=== PATIENT | male | born 1940 | race Caucasian/White ===

== ENCOUNTER 2017-10-27 05:05 | Emergency (ER) | payer MEDICARE, OTHER ==
[2017-10-27 05:14] VITALS: BP 145/95
[2017-10-27] MEDS ORDERED: SODIUM CHLORIDE 0.9% 1,000 ML IV ONE (05:17)
--- NOTE | 2017-10-27 05:27 | ED Physician Documentation ---
PD HPI ALTERED MENTAL STATUS - Stated complaint Stated Complaint: CONFUSION,HALLUCINATIONS - Chief complaint Chief Complaint: Neuro - History obtained from History obtained from: Patient, Family - History of Present Illness Timing - onset: How many days ago (4) Timing - details: Gradual onset, Intermittant Quality / character: Confused, Disoriented Associated symptoms: Cough. No: Fever, Headache, Focal weakness Contributing factors: Anticoagulated, Recent illness. No: Diabetic, Recent med change Basline status: Alert and oriented X 3 Similar symptoms before: Work up / diagnostics, Treatment Recently seen: Clinic - Additional information Additional information: Patient is a 77 year old male with a history of a-fib who is presenting to the emergency department confusion. according to the the patient has had a cough for awhile. About 4 days ago the stated that the patient seemed confused. The took the patient to the doctor who stated that he likely has a pneumonia developing and started the patient on keflex. states that he seems to still be confused. states that this morning patient was able to get up, pour juice, make tea and toast but forgot to drink his tea. According to the patient he sleeps in short stints and when he is asleep he calls sometimes. Patient is awake, alert and oriented upon initial evaluation. patient had a similar episode about 15 months ago when he had bronchitis. Review of Systems Constitutional: reports: Chills, Myalgias. denies: Fever Eyes: denies: Decreased vision, Photophobia Ears: denies: Ear pain Nose: denies: Congestion Throat: denies: Sore throat Cardiac: denies: Chest pain / pressure, Palpitations Respiratory: reports: Dyspnea, Cough. denies: Wheezing GI: denies: Nausea, Vomiting : denies: Dysuria, Frequency Skin: denies: Rash, Lesions Musculoskeletal: denies: Neck pain, Back pain, Extremity pain Neurologic: reports: Confused. 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: Other (Vasectomy) - Present Medications Home Medications: Ambulatory Orders Medication Instructions Recorded Confirmed Atorvastatin Calcium [Lipitor] 20 mg PO DAILY 02/17/15 08/10/16 Losartan [Cozaar] 25 mg PO DAILY 02/17/15 08/10/16 Metoprolol Succinate 50 mg PO DAILY 02/17/15 08/10/16 Pregabalin [Lyrica] 150 mg PO BID 02/17/15 08/10/16 Rivaroxaban [Xarelto] 20 mg PO DAILY 02/17/15 08/10/16 Azithromycin [Zithromax] 250 mg PO DAILY #4 tablet 08/10/16 - Allergies Allergies/Adverse Reactions: Allergies Allergy/AdvReac Type Severity Reaction Status Date / Time clindamycin Allergy Unknown Verified 02/17/15 08:08 penicillin * [penicillin] Allergy Unknown Verified 02/17/15 08:08 - Social History Does the pt smoke?: No Smoking Status: Never smoker Does the pt drink ETOH?: Yes Does the pt have substance abuse?: No - Immunizations Immunizations are current?: No Immunizations: TDAP >10years/unknown PD ED PE NORMAL - Vitals Vital signs reviewed: Yes - General General: Alert and oriented X 3, No acute distress, Well developed/nourished - HEENT HEENT: Atraumatic, PERRL, Moist mucous membranes Results - Vitals Vitals: Vital Signs - 24 hr 10/27/17 05:11 Temperature 37.1 C Heart Rate 93 Respiratory 16 Rate Blood Pressure 145/95 H O2 Saturation 95 Oxygen O2 Source Room air - Labs Labs: Laboratory Tests 10/27/17 10/27/17 10/27/17 05:20 05:20 05:20 WBC 8.6 RBC 4.86 Hgb 14.8 Hct 44.3 MCV 91.1 MCH 30.5 MCHC 33.4 RDW 13.5 Plt Count 196 MPV 8.3 Neut # 5.1 Lymph # 2.1 Nicholas # 1.1 H Eos # 0.2 Baso # 0.1 Absolute Nucleated RBC 0.00 Nucleated RBC % 0.0 Sodium 137 Potassium 3.8 Chloride 98 L Carbon Dioxide 28 Anion Gap 11.0 BUN 16 Creatinine 1.0 Estimated GFR (MDRD) 72 L Glucose 131 H Calcium 9.1 Magnesium 1.9 Total Bilirubin 0.9 AST 34 ALT 43 Alkaline Phosphatase 119 Ammonia Total Creatine Kinase 115 Total Protein 7.3 Albumin 4.3 Globulin 3.0 Albumin/Globulin Ratio 1.4 Lipase 146 H TSH 4.31 Urine Color Urine Clarity Urine pH Ur Specific Mohler Urine Protein Urine Glucose (UA) Urine Ketones Urine Occult Blood Urine Nitrite Urine Bilirubin Urine Urobilinogen Ur Leukocyte Esterase Ur Microscopic Review Urine Culture Comments Influenza A (Rapid) Influenza B (Rapid) Influenza Types A,B Ag 10/27/17 10/27/17 10/27/17 05:20 05:30 06:20 WBC RBC Hgb Hct MCV MCH MCHC RDW Plt Count MPV Neut # Lymph # Nicholas # Eos # Baso # Absolute Nucleated RBC Nucleated RBC % Sodium Potassium Chloride Carbon Dioxide Anion Gap BUN Creatinine Estimated GFR (MDRD) Glucose Calcium Magnesium Total Bilirubin AST ALT Alkaline Phosphatase Ammonia 27.6 Total Creatine Kinase Total Protein Albumin Globulin Albumin/Globulin Ratio Lipase TSH Urine Color YELLOW Urine Clarity CLEAR Urine pH 5.5 Ur Specific Mohler 1.020 Urine Protein NEGATIVE Urine Glucose (UA) NEGATIVE Urine Ketones NEGATIVE Urine Occult Blood NEGATIVE Urine Nitrite NEGATIVE Urine Bilirubin NEGATIVE Urine Urobilinogen 0.2 (NORMAL) Ur Leukocyte Esterase NEGATIVE Ur Microscopic Review NOT INDICATED Urine Culture Comments NOT INDICATED Influenza A (Rapid) Negative Influenza B (Rapid) Negative Influenza Types A,B Ag - - Rads (name of study) chest x-ray Radiology: Final report received (normal) PD MEDICAL DECISION MAKING - ED course Complexity details: reviewed old records, reviewed results, re-evaluated patient , considered differential, d/w patient, d/w family ED course: Patient was seen and examined at bedside. IV access was gained and labs were drawn. fluid bolus was started. chest x-ray was performed and was within normal limits. patient's symptoms seemed to be almost the exact same thing as his last visit. Patient was awake, alert and oriented and appropriate but he would fall asleep relatively quickly. Patient had mild dehydration and was treated with ns bolus. Patient's other diagnostics were within normal limits. Patient and his were comfortable with the plan and were stable for discharge with outpatient followup. Departure - Departure Disposition: 01 Home, Self Care Clinical Impression: Delirium Condition: Good Instructions: Delirium Prevent Follow-Up: Christiano Al MD [Primary Care Provider] - Comments: Your diagnostics today were within normal limits. there is no acute abnormalities aside from mild dehydration. It is important to stay well hydrated and get plenty of rest. If your symptoms don't improve over the next couple of days you should follow up with your doctor. You may return to the emergency department at any time for new, worsening or uncontrollable symptoms.
[2017-10-27 05:33] LABS: BASOPHILS # (AUTO) 0.1 10^3/uL (0.0-0.1); BASOPHILS % (AUTO) 0.8 %; EOSINOPHILS # (AUTO) 0.2 10^3/uL (0.0-0.7); EOSINOPHILS % (AUTO) 2.6 %; HGB - HEMOGLOBIN 14.8 g/dL (14.0-18.0); LYMPHOCYTES # (AUTO) 2.1 10^3/uL (1.5-3.5); LYMPHOCYTES % (AUTO) 24.4 %; MEAN CORPUSCULAR HEMOGLOBIN 30.5 pg (27.0-31.0); MEAN CORPUSCULAR HGB CONC 33.4 g/dL (32.0-36.0); MEAN CORPUSCULAR VOLUME 91.1 fL (80.0-94.0); MEAN PLATELET VOLUME 8.3 fL (7.4-11.4); MONOCYTES # (AUTO) 1.1 10^3/uL (0.0-1.0); MONOCYTES % (AUTO) 12.4 %; NEUTROPHILS # (AUTO) 5.1 10^3/uL (1.5-6.6); NEUTROPHILS % (AUTO) 59.8 %; PLT - PLATELET COUNT 196 10^3/uL (130-450); RED BLOOD COUNT 4.86 10^6/uL (4.70-6.10); RED CELL DISTRIBUTION WIDTH 13.5 % (12.0-15.0); WHITE BLOOD COUNT 8.6 x10^3/uL (4.8-10.8)
[2017-10-27 05:38] LABS: ALBUMIN 4.3 g/dL (3.2-5.5); ALBUMIN/GLOBULIN RATIO 1.4 (1.0-2.2); BILIRUBIN,TOTAL 0.9 mg/dL (0.2-1.0); CALCIUM 9.1 mg/dL (8.5-10.3); MAGNESIUM 1.9 mg/dL (1.7-2.8); TOTAL PROTEIN 7.3 g/dL (6.7-8.2)
--- NOTE | 2017-10-27 06:08 | XRAY Report ---
EXAM: CHEST RADIOGRAPHY EXAM DATE: 10/27/2017 05:50 AM. CLINICAL HISTORY: Cough, fever, confusion. COMPARISON: 08/10/2016. TECHNIQUE: 2 views. FINDINGS: Lungs/Pleura: No focal opacities evident. No pleural effusion. No pneumothorax. Normal volumes. Mediastinum: Heart and mediastinal contours are unremarkable. Other: Stable right hemidiaphragm mild elevation. IMPRESSION: No acute process seen in the chest. [facility] Referring Provider Line: [phone] SITE ID: [id number]
[2017-10-27 06:26] LABS: BILIRUBIN,URINE NEGATIVE (NEGATIVE); GLUCOSE, URINE (UA) NEGATIVE (NEGATIVE); KETONES,URINE (UA) NEGATIVE (NEGATIVE); LEUKOCYTE ESTERASE, URINE NEGATIVE (NEGATIVE); NITRITE,URINE NEGATIVE (NEGATIVE); OCCULT BLOOD,URINE NEGATIVE (NEGATIVE); PH,URINE 5.5 PH (5.0-7.5); PROTEIN,URINE NEGATIVE (NEGATIVE); UROBILINOGEN,URINE 0.2 (NORMAL) E.U./dL (NORMAL)
[2017-10-27 06:30] LABS: CLARITY,URINE CLEAR (CLEAR)
== END 2017-10-27 07:14 | disposition home or self-care (01) ==
LOC: ED 05:05
DX: R41.0 Disorientation, unspecified (principal); I10 Essential (primary) hypertension
CPT/HCPCS: 36415; 71046; 80053; 81001; 81003; 82140; 82550; 83690; 83735; 84443; 85025; 87040; 87086; 87275; 87276; 96360; 99284

== ENCOUNTER 2017-11-06 09:42 | Outpatient (CLI) | payer MEDICARE, OTHER ==
[~2017-11-06 09:42] MED LIST: GADOBUTROL 15 MMOL/15 ML VIAL ONE
[2017-11-06] MEDS ORDERED: GADOBUTROL 15 MMOL/15 ML VIAL IVP ONE (11:04)
--- NOTE | 2017-11-06 20:04 | MRI Report ---
EXAM: MRI LUMBAR SPINE WITHOUT AND WITH CONTRAST EXAM DATE: 11/06/2017 11:18 AM. CLINICAL HISTORY: Chronic low back pain. Right lower leg numbness. Right leg weakness. Spinal stenosi s. COMPARISONS: None. TECHNIQUE: Multiplanar, multisequence T1-weighted and fluid-sensitive sequences of the lumbar spine f rom T12 to S1 before and after administration of intravenous contrast. Other: None. IV contrast: 11 m L Gadavist. FINDINGS: Spinal Cord: The conus terminates at L1. The conus medullaris and cauda equina are unremarkable. Alignment: 3 mm posterior subluxation L1 on L2 and L2 on L3. 4 mm anterior subluxation L4 on L5. Bone Marrow: Five [id number] lumbar vertebral bodies are assumed. Patchy areas of diskogenic end plate edema at L2-L3, L4-L5 and L5-S1. Prominent marrow edema at the right-sided L5 pedicle and pars interarticularis. Disk Levels/Facets: T12-L1: Disk height loss and dehydration. Annular disk bulge and mild degenerative facet arthropathy. Mild effacement of the thecal sac. L1-L2: Disk height loss and dehydration. Annular disk bulge with broad-based right foraminal protrusi on and moderate degenerative facet arthropathy. Mild central canal stenosis. Mild left greater than r ight inferior foraminal narrowing. L2-L3: Disk height loss and dehydration. Annular disk bulge. Moderate degenerative facet arthropathy with ligamentum flavum buckling. Broad-based left greater than right foraminal protrusions. Moderate central canal stenosis. Some prominence of posterior epidural fat. Mild inferior foraminal narrowing left greater than right. L3-L4: Mild disk height loss and dehydration. Moderate to severe degenerative facet arthropathy with ligamentum flavum buckling. Annular disk bulge with small broad-based left foraminal protrusion. Mode rate central canal stenosis. Moderate left and mild right foraminal stenosis. L4-L5: Disk height loss and dehydration. Grade 1 spondylolisthesis. Annular disk bulge and uncovering of the disk with severe bilateral degenerative facet arthropathy and ligamentum flavum buckling. Tin y facet joint effusions. Severe central canal stenosis. Mild bilateral foraminal stenosis. L5-S1: Disk height loss and dehydration. Mild to moderate degenerative facet arthropathy. Annular dis k bulge with broad-based foraminal protrusions. Moderate left and mild right foraminal stenosis. Spinal Canal: No enhancing masses within the spinal canal. No epidural abscess. Musculature: Normal. No edema, abnormal enhancement, or fatty atrophy. Other: Partially visualized high signal left renal lesions, possible renal cysts. 3.3 x 2.6 cm with p ossible thin septation. IMPRESSION: 1. 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 2. L4-L5 severe central canal stenosis. Mild bilateral foraminal stenosis. 3. L2-L3 and L3-L4 moderate central canal stenosis. 4. Prominent marrow edema at the L5 right pedicle and pars interarticularis. Possible stress reaction . Comment: The following findings are so common in adults without low back pain that while we report th eir presence, they must be interpreted with caution and in the context of the clinical situation. (Re juanito Rider et al, Spine 2001) Prevalence of findings in patients without low back pain: Disk degeneration (any evidence): 92% Disk desiccation/T2 signal loss: 83% Disk height loss: 56% Disk bulge: 64% Disk protrusion: 32% Annular tear/high intensity zone: 38% [facility] Referring Provider Line: [phone] SITE ID: [id number]
== END 2017-11-06 09:43 | disposition home or self-care (01) ==
LOC: DI 09:42
PROVIDERS: ATTEND Psychiatry & Neurology Neurology
DX: M51.36 Other intervertebral disc degeneration, lumbar region (principal); M47.896 Other spondylosis, lumbar region; M43.16 Spondylolisthesis, lumbar region; M51.37 Other intervertebral disc degeneration, lumbosacral region; M47.897 Other spondylosis, lumbosacral region
CPT/HCPCS: 72158; A9585

== ENCOUNTER 2021-09-07 12:53 | Outpatient (CLI) | payer MEDICARE, OTHER | END 2021-09-07 12:54 | disposition short-term general hospital (02) | LOC: EMS 12:53 | DX: R47.81 Slurred speech (principal); R26.2 Difficulty in walking, not elsewhere classified; R42 Dizziness and giddiness; R11.0 Nausea; H53.8 Other visual disturbances | CPT/HCPCS: A0425; A0429 ==

== ENCOUNTER 2023-07-11 23:03 | Outpatient (CLI) | payer MEDICARE, OTHER | END 2023-07-11 23:59 | disposition EMS.NT | LOC: EMS 23:03 | DX: Z03.89 Encounter for observation for other suspected diseases and conditions ruled out (principal) ==